=== PATIENT | male | born 1945 | race Caucasian/White ===

== ENCOUNTER → 2018-09-28 08:17 | Outpatient (CLI) | payer MEDICARE, OTHER ==
[2013-08-26 04:40] VITALS: BMI 31.2
[~2018-09-28 08:17] MED LIST: B-12 DOTS500 MCG SL; BAYER CHEWABLE81 MG PO; MILK OF MAGNESI30 ML PO; MULTIPLE VITAMI1 TA1 PO; NORVASC5 MG PO; OYST-CAL-5001 TAB PO; PERCOCET 10/3251 TA1 PO; VITAMIN D2000 UNIT PO
== END | disposition home or self-care (01) ==
LOC: D.CT 08:17
PROVIDERS: ATTEND Family Medicine
DX: G44.52 New daily persistent headache (NDPH) (principal)

== ENCOUNTER 2020-09-11 05:11 | Day surgery (SDC) | payer MEDICARE, OTHER ==
[2020-09-10 11:38] LABS: BASOPHILS 0.7 % (0-2); EOSINOPHILS 1.9 % (0-7); HEMATOCRIT 46.4 % (42.0-54.0); HEMOGLOBIN 14.8 g/dL (13.5-17.5); IMMATURE GRANULOCYTES 0.2 % (0-5); LYMPHOCYTE ABS# 1.94 10x3/uL (1.32-3.57); LYMPHOCYTES 23.3 % (15-50); MCH 28.5 pg (26.0-34.0); MCHC 31.9 g/dL (31.0-37.0); MCV 89.2 fL (80.0-100.0); MEAN PLATELET VOLUME 9.5 fL (7.4-10.4); MONOCYTES 11.9 % (2-11); NEUTROPHIL ABS# 5.16 10x3/uL (1.78-5.38); RDW 14.4 % (11.5-14.5); WBC 8.3 10x3/uL (4.8-10.8)
[2020-09-10 11:43] LABS: ANION GAP 9.8 mmol/L (8-16); CALCIUM 9.3 mg/dL (8.5-10.1); CARBON DIOXIDE 31.9 mmol/L (21.0-32.0); CREATININE - SERUM 1.2 mg/dL (0.6-1.3); POTASSIUM - SERUM 3.7 mmol/L (3.5-5.1)
[2020-09-10 11:44] LABS: PLATELET COUNT 251 10x3/uL (130-400)
[2020-09-10 11:52] LABS: INR 1.05 (0.85-1.17); PROTIME 12.7 SECONDS (11.6-15.0)
[2020-09-10 11:53] LABS: APTT 36.2 SECONDS (22.8-39.4)
[~2020-09-11] VITALS: Ht 177.8 cm; Wt 113.4 kg
[~2020-09-11 05:11] MED LIST changes: +CIALIS10 MG PO; +CLARITIN 10 MG10 MG PO; +COREG6.25 MG PO; +CRESTOR40 MG PO; +ELIQUIS5 MG PO; +GLUCOPHAGE500 MG PO; +HYDROCHLOROTHIA25 MG PO; +K-DUR20 MEQ PO; +LISINOPRIL20 MG PO; +NORITATE60 GM TP; +PROTONIX40 MG PO; +PROZAC10 MG PO; +VITAMIN D325 MC1 PO; +VOLTAREN100 GM TOPICAL
[2020-09-11 06:04] VITALS: BP 128/70; Ht 177.8 cm; Wt 113.4 kg
--- NOTE | 2020-09-11 10:41 | NUR ---
IV D/C'D WITH CANNULA INTACT, PRESSURE HELD AND DRSG PLACED. DISCHARGE INSTRUCTIONS GIVEN AND PT VERBALIZED AN UNDERSTANDING. DENIES C/O PAIN, DISCHRGED HOME IN STABLE CONDITION
--- NOTE | 2020-09-11 15:01 | OP ---
PATIENT NAME: PRITI PLUNKETT MEDICAL RECORD: [id number] :43 LOCATION:[facility] ADMISSION DATE: SURGEON: XAVI MADERA DO DATE OF OPERATION: 09/11/2020 PROCEDURE PERFORMED: Left endoscopic carpal tunnel release and left small and middle finger A1 bon release. INDICATIONS: Mr. Plunkett is a 75-year-old male who has had trigger fingers of the middle and small fingers as well as carpal tunnel syndrome. He wanted something done surgically and was aware of the risks of this including infection, bleeding, damage to nerves or vessels, need for further surgery, damage to the flexor tendons, continued numbness and tingling and he signed the consent. SURGEON: Xavi Madera DO DESCRIPTION OF PROCEDURE: The patient was taken to the operative suite, laid in supine position, given general anesthetic, given 2 grams of Ancef, sedated and LMA was placed. The left upper extremity was then prepped and draped in sterile fashion. Timeout was performed, everyone was in agreeance with the correct side, site, patient and procedure. I then began by exsanguinating the left upper extremity with an Esmarch, tourniquet was inflated to 250 mmHg, it was up for 13 minutes. I then started with the carpal tunnel and made a small incision over the volar wrist, just centered over the palmaris longus tendon, made blunt dissection with Inder down to the median nerve, released the fascia in the forearm from distal to proximal and then went to the carpal tunnel, cleaned off the transverse carpal ligament, opened it up first with the dilators and then put in the sheath. Once I got a good view of the transverse carpal ligament, brought in the rasp and a probe, ensured that I was cutting through the transverse carpal ligament and I indeed was. I raised the blade up and transected the transverse carpal ligament fat, then herniated down into the carpal tunnel indicating good release. I then went to the middle finger, made a small incision over the distal palmar crease and made blunt dissection down to the A1 bon with Inder and used a knife and scissors and released A1 bon and part of the A2 bon. I then pulled the tendons through the incision to assure there was no catching. I then repeated this process on over the small finger. We then let the tourniquet down. I injected the site with 0.25% Marcaine with epinephrine on all the sites approximately 15 mL total. [place] Pereira, certified surgical credit control assistant then closed the sites of the trigger finger sites with 4-0 nylon and then the carpal tunnel with 5-0 Monocryl in inverted interrupted fashion. It was then dressed with Adaptic, 4 x 4s, Kerlix and Coban lightly wrapped. He was awakened and taken to recovery in stable condition. BLOOD LOSS: Minimal. COMPLICATIONS: None. TRANSINT:[id number] Voice Confirmation ID: [id number] DOCUMENT ID: [id number] OPERATIVE REPORT [id number] PRITI PLUNKETT,XAVI Padilla DO at 1501 CC: [id number] DICTATION DATE: 09/11/20814 IRRIGATOR SPRINKLING SYSTEM: 09/11/20 1342 [facility] 09/11/20 [facility] [address] [place] [address]
== END 2020-09-11 09:50 | disposition home or self-care (01) ==
LOC: D.OPS 05:11
PROVIDERS: Anesthesiology; ATTEND Orthopaedic Surgery
DX: G56.02 Carpal tunnel syndrome, left upper limb (principal); M65.352 Trigger finger, left little finger; M65.332 Trigger finger, left middle finger; I10 Essential (primary) hypertension; E78.5 Hyperlipidemia, unspecified; Z79.01 Long term (current) use of anticoagulants; E11.9 Type 2 diabetes mellitus without complications; Z79.84 Long term (current) use of oral hypoglycemic drugs